=== PATIENT | male | born 1985 | race Caucasian/White ===

== ENCOUNTER 2021-09-28 09:58 | Emergency (ER) | payer MEDICAID ==
[~2021-09-28] VITALS: Ht 172.7 cm; Wt 73.0 kg
[2021-09-28 10:02] VITALS: BP 126/72
[2021-09-28] MEDS ORDERED: ACETAMINOPHEN 325MG TABLET PO ONE (10:30)
[2021-09-28] MEDS ORDERED: TOPUD PO ×2 (10:35→13:17)
== END 2021-09-28 10:50 | disposition home or self-care (01) ==
LOC: ER 10:26
DX: R07.89 Other chest pain (principal); Z76.5 Malingerer [conscious simulation]; R45.1 Restlessness and agitation; R00.0 Tachycardia, unspecified
CPT/HCPCS: 93005; 99283

== ENCOUNTER 2021-09-28 11:20 | Emergency (ER) | payer MEDICAID ==
[~2021-09-28] VITALS: Ht 175.3 cm; Wt 59.0 kg
[~2021-09-28 11:20] MED LIST: TOPUD PO
[2021-09-28] MEDS ORDERED: OXYCODONE HCL/ACETAMINOPHEN 5/325MG TABLET PO ONE (11:30)
[2021-09-28 11:59] VITALS: BP 150/90
[2021-09-28 12:09] LABS: BASOPHILS % 0.3 % (0.0-2.0); EOSINOPHILS % 0.1 % (0.0-5.0); HEMATOCRIT. 40.6 % (42.0-52.0); HEMOGLOBIN. 13.9 g/dL (14.0-18.0); LYMPHOCYTES % 13.4 % (20.0-50.0); MEAN CORPUSCULAR HEMOGLOBIN 28.9 pg (28.0-32.0); MEAN CORPUSCULAR VOLUME 84.4 fL (80.0-94.0); MEAN PLATELET VOLUME 6.6 fl (7.4-10.4); MONOCYTES % 5.7 % (2.0-8.0); NEUTROPHILS % 80.5 % (40.0-76.0); PLATELET 319 x1000/uL (130-400); RED CELL DISTRIBUTION WIDTH 14.1 % (11.6-14.6)
[2021-09-28 12:26] LABS: CHLORIDE 102 mEq/L (98-107)
[2021-09-28 12:30] LABS: ETHANOL BLOOD 261 mg/dL
[2021-09-28] MEDS ORDERED: TOPUD PO (13:17)
[2021-09-28] MEDS ORDERED: ACETAMINOPHEN 325MG TABLET PO ONE (13:45)
== END 2021-09-28 13:55 | disposition home or self-care (01) ==
LOC: ER 11:20
DX: R07.89 Other chest pain (principal); F10.129 Alcohol abuse with intoxication, unspecified; Y90.8 Blood alcohol level of 240 mg/100 ml or more
CPT/HCPCS: 36415; 80053; 80320; 84484; 85025; 93005; 99284; G0480

== ENCOUNTER 2021-09-29 07:08 | Emergency (ER) | payer MEDICAID ==
[~2021-09-29] VITALS: Ht 175.3 cm; Wt 64.0 kg
[2021-09-29 07:12] VITALS: BP 136/76
[2021-09-29] MEDS ORDERED: IBUPROFEN 400MG TABLET PO ONE (07:15)
== END 2021-09-29 08:54 | disposition left against medical advice (07) ==
LOC: ER 07:08
DX: R07.89 Other chest pain (principal)
CPT/HCPCS: 93005; 99283